=== PATIENT | male | born 1930 | race Caucasian/White ===

== ENCOUNTER → 2017-11-27 | Outpatient (CLI) | payer OTHER ==
[~2017-11-27] MED LIST: BISA5EC PO; CYAN500; Cipro500 MG PO; Colace100 MG PO; DONE10 PO; DONE5 PO; Flagyl500 MG PO; GABA800 PO; Golytely Solu4000 ML PO; KETO.5OPSO BOTHEYES; MAGCIT300 PO; MIRT15 PO; Norco 5-325 Ta1 EACH PO; Percocet 5-3251 EACH PO; Prednisone20 MG PO; TOCO1000 PO; Valium5 MG PO; Zofran Odt4 MG PO; Zofran Odt4 MG SL
[2017-11-27 15:59] LABS: BASOPHILS ABSOLUTE AUTO 0.05 K/mm3 (0.00-0.23); BASOPHILS PERCENT AUTO 1 % (0-2); EOSINOPHILS ABSOLUTE AUTO 0.06 K/mm3 (0.00-0.68); EOSINOPHILS PERCENT AUTO 1 % (0-6); Hematocrit 44.4 % (37.0-53.0); Hemoglobin 15.3 g/dL (13.5-17.5); IMMATURE GRAN ABSOLUTE AUTO 0.03 K/mm3 (0.00-0.10); IMMATURE GRAN PERCENT AUTO 0 % (0-1); LYMPHOCYTES PERCENT AUTO 14 % (21-46); MONOCYTES ABSOLUTE AUTO 0.73 K/mm3 (0.16-1.47); MONOCYTES PERCENT AUTO 8 % (4-13); Mean Corpuscular HGB 32.1 pg (26.0-34.0); Mean Corpuscular HGB Conc 34.5 g/dL (31.5-36.5); Mean Corpuscular Volume 93 fL (80-100); Mean Platelet Volume 9.4 fL (9.1-12.4); NEUTROPHILS ABSOLUTE AUTO 6.93 K/mm3 (1.96-9.15); NEUTROPHILS PERCENT AUTO 76 % (41-73); Platelet Count 189 K/mm3 (150-400); RDW Coefficient Variation 13.2 % (11.7-14.2); RDW Standard Deviation 44.8 fL (35.1-46.3); Red Blood Cell Count 4.77 M/mm3 (4.30-5.90)
[2017-11-27 16:07] LABS: Alanine Aminotransfer (ALT/SGP 30 U/L (12-78); Albumin, Blood 3.9 g/dL (3.4-5.0); Albumin/Globulin Ratio 1.2 (0.8-1.8); Alk Phos 106 U/L (40-126); Anion Gap 10 mmol/L (6-16); Aspartate Aminotrans (AST/SGOT 21 U/L (12-37); Bilirubin, Total 0.4 mg/dL (0.1-1.0); Blood Urea Nitrogen 20 mg/dL (8-24); CO2, Blood 28 mmol/L (21-32); Calcium, Blood 8.8 mg/dL (8.5-10.1); Chloride, Blood 102 mmol/L (98-108); Globulin, Blood 3.3 g/dL (2.2-4.0); Glomerular Filtration Rate >60 (60-); Glucose, Blood 118 mg/dL (70-99); Potassium, Blood 4.4 mmol/L (3.5-5.5); Sodium, Blood 140 mmol/L (136-145); Total Protein, Blood 7.2 g/dL (6.4-8.2)
== END ==
LOC: LAB SHORT 15:52
PROVIDERS: Physician Assistant
DX: R10.9 Unspecified abdominal pain (principal)
CPT/HCPCS: 80053; 85025

== ENCOUNTER → 2017-12-01 | Outpatient (CLI) | payer OTHER | LOC: LAB SHORT 12:58 | DX: R34 Anuria and oliguria (principal) | CPT/HCPCS: 87086 ==

== ENCOUNTER → 2017-12-13 | Outpatient (CLI) | payer OTHER ==
[2017-12-13 14:40] LABS: Anion Gap 4 mmol/L (6-16); Blood Urea Nitrogen 12 mg/dL (8-24); Bun/Creatinine Ratio 12.8 (12.0-20.0); CO2, Blood 29 mmol/L (21-32); Calcium, Blood 8.9 mg/dL (8.5-10.1); Chloride, Blood 104 mmol/L (98-108); Creatinine, Blood 0.94 mg/dL (0.60-1.20); Glomerular Filtration Rate >60 (60-); Glucose, Blood 98 mg/dL (70-99); Potassium, Blood 4.1 mmol/L (3.5-5.5); Sodium, Blood 137 mmol/L (136-145)
== END ==
LOC: LAB SHORT 13:58
PROVIDERS: General Practice
DX: G60.9 Hereditary and idiopathic neuropathy, unspecified (principal); R53.81 Other malaise
CPT/HCPCS: 80048; 82607; 84443; 86592

== ENCOUNTER 2017-12-25 15:48 | Emergency (ER) | payer OTHER ==
[~2017-12-25] VITALS: Ht 170.2 cm; Wt 81.7 kg
[~2017-12-25 15:48] MED LIST changes: -Cipro500 MG PO; -Colace100 MG PO; -Flagyl500 MG PO; -GABA800 PO; -Golytely Solu4000 ML PO; -Norco 5-325 Ta1 EACH PO; -Zofran Odt4 MG PO
[2017-12-25 17:09] LABS: BASOPHILS ABSOLUTE AUTO 0.04 K/mm3 (0.00-0.23); BASOPHILS PERCENT AUTO 1 % (0-2); EOSINOPHILS ABSOLUTE AUTO 0.08 K/mm3 (0.00-0.68); EOSINOPHILS PERCENT AUTO 1 % (0-6); Hematocrit 43.1 % (37.0-53.0); Hemoglobin 14.1 g/dL (13.5-17.5); IMMATURE GRAN ABSOLUTE AUTO 0.01 K/mm3 (0.00-0.10); IMMATURE GRAN PERCENT AUTO 0 % (0-1); LYMPHOCYTES ABSOLUTE AUTO 0.88 K/mm3 (0.84-5.20); LYMPHOCYTES PERCENT AUTO 15 % (21-46); MONOCYTES ABSOLUTE AUTO 0.45 K/mm3 (0.16-1.47); MONOCYTES PERCENT AUTO 8 % (4-13); Mean Corpuscular HGB 30.9 pg (26.0-34.0); Mean Corpuscular HGB Conc 32.7 g/dL (31.5-36.5); Mean Corpuscular Volume 94 fL (80-100); Mean Platelet Volume 9.4 fL (9.1-12.4); NEUTROPHILS ABSOLUTE AUTO 4.51 K/mm3 (1.96-9.15); NEUTROPHILS PERCENT AUTO 76 % (41-73); Platelet Count 179 K/mm3 (150-400); RDW Coefficient Variation 13.1 % (11.7-14.2); RDW Standard Deviation 45.2 fL (35.1-46.3); Red Blood Cell Count 4.57 M/mm3 (4.30-5.90); White Blood Cell Count 5.97 K/mm3 (4.00-11.30)
[2017-12-25 17:13] LABS: Alanine Aminotransfer (ALT/SGP 26 U/L (12-78); Albumin, Blood 3.8 g/dL (3.4-5.0); Albumin/Globulin Ratio 1.2 (0.8-1.8); Alk Phos 83 U/L (50-136); Anion Gap 9 mmol/L (6-16); Aspartate Aminotrans (AST/SGOT 27 U/L (12-37); Bilirubin, Total 0.3 mg/dL (0.1-1.0); Blood Urea Nitrogen 21 mg/dL (8-24); Bun/Creatinine Ratio 25.7 (12.0-20.0); CO2, Blood 25 mmol/L (21-32); Calcium, Blood 8.7 mg/dL (8.5-10.1); Chloride, Blood 105 mmol/L (98-108); Creatinine, Blood 0.82 mg/dL (0.60-1.20); Globulin, Blood 3.2 g/dL (2.2-4.0); Glomerular Filtration Rate >60 (60-); Glucose, Blood 128 mg/dL (70-99); Potassium, Blood 4.2 mmol/L (3.5-5.5); Sodium, Blood 139 mmol/L (136-145)
[2017-12-25] MEDS ORDERED: Golytely Solu4000 ML PO (18:13)
[2017-12-25] MEDS ORDERED: GABA800 PO (18:15)
[2018-08-28] MEDS ORDERED: Colace100 MG PO (00:28)
[2018-08-28] MEDS ORDERED: Cipro500 MG PO (00:28)
[2018-08-28] MEDS ORDERED: Zofran Odt4 MG PO (00:28)
[2018-08-28] MEDS ORDERED: Norco 5-325 Ta1 EACH PO (00:28)
[2018-08-28] MEDS ORDERED: Flagyl500 MG PO (00:28)
== END 2017-12-25 18:38 | disposition home or self-care (01) ==
LOC: ER 15:48
PROVIDERS: Physician Assistant
DX: K59.00 Constipation, unspecified (principal); Z88.5 Allergy status to narcotic agent; Z79.899 Other long term (current) drug therapy; Z88.6 Allergy status to analgesic agent
CPT/HCPCS: 36415; 51798; 74019; 80053; 81000; 85025; 93005; 93010; 99283

== ENCOUNTER → 2018-04-06 | Outpatient (CLI) | payer OTHER ==
[~2018-04-06] MED LIST changes: +GABA800 PO; +Golytely Solu4000 ML PO
[2018-04-08 14:29] LABS: Stool Occult Bld Immuno 1 Negative (NEGATIVE)
== END | disposition home or self-care (01) ==
LOC: LAB EV 15:51
PROVIDERS: Internal Medicine
DX: K62.5 Hemorrhage of anus and rectum (principal)
CPT/HCPCS: 82274

== ENCOUNTER → 2019-06-22 | Outpatient (CLI) | payer OTHER ==
[~2019-06-22] MED LIST changes: +Cipro500 MG PO; +Colace100 MG PO; +Flagyl500 MG PO; +Norco 5-325 Ta1 EACH PO; +Zofran Odt4 MG PO
== END | disposition home or self-care (01) ==
LOC: PLD 11:41 → LAB SHORT 11:41
DX: D48.5 Neoplasm of uncertain behavior of skin (principal)
CPT/HCPCS: 88305

== ENCOUNTER → 2019-08-09 | Outpatient (CLI) | payer OTHER | END | disposition home or self-care (01) | LOC: LAB SHORT 09:22 → PLD 09:22 | DX: C44.219 Basal cell carcinoma of skin of left ear and external auricular canal (principal) | CPT/HCPCS: 88305 ==

== ENCOUNTER → 2021-03-27 | Outpatient (CLI) | payer OTHER ==
[~2021-03-27] MED LIST changes: +Colace250 MG PO; +LACT10SY PO; +LATA.005SO BOTHEYES; +MEMA10 PO; +MIRT30ST PO; +POWDERLAX238 GM PO; +RAZADYNE12 MG PO; +SERT25 PO
== END | disposition home or self-care (01) ==
LOC: LAB SHORT 12:06 → LAB 12:06
DX: C44.229 Squamous cell carcinoma of skin of left ear and external auricular canal (principal)
CPT/HCPCS: 88305

== ENCOUNTER → 2021-04-10 | Outpatient (CLI) | payer OTHER | LOC: LAB SHORT 10:24 → LAB 10:24 | DX: C44.229 Squamous cell carcinoma of skin of left ear and external auricular canal (principal) | CPT/HCPCS: 88305 ==

== ENCOUNTER 2021-04-25 00:25 | Emergency (ER) | payer OTHER ==
[~2021-04-25] VITALS: Ht 175.3 cm; Wt 74.8 kg
[~2021-04-25 00:25] MED LIST changes: -Colace250 MG PO; -LACT10SY PO; -LATA.005SO BOTHEYES; -MEMA10 PO; -MIRT30ST PO; -POWDERLAX238 GM PO; -RAZADYNE12 MG PO; -SERT25 PO
[2021-04-25] MEDS ORDERED: LATA.005SO BOTHEYES (00:51)
[2021-04-25] MEDS ORDERED: RAZADYNE12 MG PO (00:51)
[2021-04-25] MEDS ORDERED: LACT10SY PO (00:51)
[2021-04-25] MEDS ORDERED: SERT25 PO (00:52)
[2021-04-25] MEDS ORDERED: MEMA10 PO (00:52)
[2021-04-25] MEDS ORDERED: MIRT30ST PO (00:52)
[2021-04-25 01:48] LABS: Alanine Aminotransfer (ALT/SGP 23 U/L (12-78); Albumin, Blood 3.9 g/dL (3.4-5.0); Albumin/Globulin Ratio 1.1 (0.8-1.8); Alk Phos 103 U/L (50-136); Anion Gap 4 mmol/L (6-16); Aspartate Aminotrans (AST/SGOT 33 U/L (12-37); Bilirubin, Total 0.5 mg/dL (0.1-1.0); Blood Urea Nitrogen 23 mg/dL (8-24); Bun/Creatinine Ratio 21.9 (12.0-20.0); CO2, Blood 26 mmol/L (21-32); Calcium, Blood 8.6 mg/dL (8.5-10.1); Chloride, Blood 108 mmol/L (98-108); Creatinine, Blood 1.05 mg/dL (0.60-1.20); Globulin, Blood 3.4 g/dL (2.2-4.0); Glomerular Filtration Rate >60 (60-); Glucose, Blood 109 mg/dL (70-99); Potassium, Blood 5.5 mmol/L (3.5-5.5); Sodium, Blood 138 mmol/L (136-145); Total Protein, Blood 7.3 g/dL (6.4-8.2); Troponin I <0.015 ng/mL (0.000-0.040)
[2021-04-25 02:08] LABS: BASOPHILS ABSOLUTE AUTO 0.02 K/mm3 (0.00-0.23); BASOPHILS PERCENT AUTO 0 % (0-2); EOSINOPHILS ABSOLUTE AUTO 0.01 K/mm3 (0.00-0.68); EOSINOPHILS PERCENT AUTO 0 % (0-6); Hematocrit 42.5 % (37.0-53.0); Hemoglobin 14.3 g/dL (13.5-17.5); IMMATURE GRAN ABSOLUTE AUTO 0.03 K/mm3 (0.00-0.10); IMMATURE GRAN PERCENT AUTO 0 % (0-1); LYMPHOCYTES ABSOLUTE AUTO 0.91 K/mm3 (0.84-5.20); LYMPHOCYTES PERCENT AUTO 11 % (21-46); MONOCYTES ABSOLUTE AUTO 0.58 K/mm3 (0.16-1.47); MONOCYTES PERCENT AUTO 7 % (4-13); Mean Corpuscular HGB 32.6 pg (26.0-34.0); Mean Corpuscular HGB Conc 33.6 g/dL (31.5-36.5); Mean Corpuscular Volume 97 fL (80-100); Mean Platelet Volume 9.5 fL (9.1-12.4); NEUTROPHILS ABSOLUTE AUTO 6.88 K/mm3 (1.96-9.15); NEUTROPHILS PERCENT AUTO 82 % (41-73); Platelet Count 174 K/mm3 (150-400); RDW Standard Deviation 46.6 fL (35.1-46.3); Red Blood Cell Count 4.39 M/mm3 (4.30-5.90); White Blood Cell Count 8.43 K/mm3 (4.00-11.30)
[2021-04-25] MEDS ORDERED: POWDERLAX238 GM PO (04:07)
[2021-04-25] MEDS ORDERED: Colace250 MG PO (04:07)
== END 2021-04-25 04:27 | disposition home or self-care (01) ==
LOC: ER 00:25
PROVIDERS: Emergency Medicine
DX: K59.00 Constipation, unspecified (principal); Z88.5 Allergy status to narcotic agent; Z79.899 Other long term (current) drug therapy
CPT/HCPCS: 36415; 71045; 74177; 80053; 83690; 83735; 84484; 85025; 93005; 93010; 96374; 96375; 99284-25; A9270; J2270; J2405; Q9967

== ENCOUNTER 2021-06-05 19:36 | Emergency (ER) | payer OTHER ==
[~2021-06-05] VITALS: Ht 170.2 cm; Wt 77.1 kg
[~2021-06-05 19:36] MED LIST changes: +Colace250 MG PO; +LACT10SY PO; +LATA.005SO BOTHEYES; +MEMA10 PO; +MIRT30ST PO; +POWDERLAX238 GM PO; +RAZADYNE12 MG PO; +SERT25 PO
== END 2021-06-05 20:26 | disposition left against medical advice (07) ==
LOC: ER 19:36
DX: K59.00 Constipation, unspecified (principal); Z53.21 Procedure and treatment not carried out due to patient leaving prior to being seen by health care provider
CPT/HCPCS: 74022; 99283-25

== ENCOUNTER 2021-12-09 16:05 | Inpatient (IN) | payer OTHER ==
[~2021-12-09] VITALS: Ht 172.7 cm; Wt 75.8 kg
[2021-12-09 16:45] LABS: BASOPHILS ABSOLUTE AUTO 0.02 K/mm3 (0.00-0.23); BASOPHILS PERCENT AUTO 0 % (0-2); EOSINOPHILS PERCENT AUTO 0 % (0-6); Hematocrit 44.4 % (37.0-53.0); Hemoglobin 14.9 g/dL (13.5-17.5); IMMATURE GRAN ABSOLUTE AUTO 0.02 K/mm3 (0.00-0.10); IMMATURE GRAN PERCENT AUTO 0 % (0-1); LYMPHOCYTES ABSOLUTE AUTO 0.59 K/mm3 (0.84-5.20); LYMPHOCYTES PERCENT AUTO 9 % (21-46); MONOCYTES ABSOLUTE AUTO 0.79 K/mm3 (0.16-1.47); MONOCYTES PERCENT AUTO 11 % (4-13); Mean Corpuscular HGB 32.1 pg (26.0-34.0); Mean Corpuscular HGB Conc 33.6 g/dL (31.5-36.5); Mean Corpuscular Volume 96 fL (80-100); NEUTROPHILS ABSOLUTE AUTO 5.49 K/mm3 (1.96-9.15); NEUTROPHILS PERCENT AUTO 80 % (41-73); RDW Coefficient Variation 13.6 % (11.7-14.2); RDW Standard Deviation 48.4 fL (35.1-46.3); Red Blood Cell Count 4.64 M/mm3 (4.30-5.90); White Blood Cell Count 6.91 K/mm3 (4.00-11.30)
[2021-12-09 16:46] LABS: Mean Platelet Volume 9.6 fL (9.1-12.4)
[2021-12-09 16:54] LABS: Alanine Aminotransfer (ALT/SGP 33 U/L (12-78); Albumin, Blood 3.9 g/dL (3.4-5.0); Albumin/Globulin Ratio 1.1 (0.8-1.8); Alk Phos 111 U/L (50-136); Anion Gap 9 mmol/L (6-16); Aspartate Aminotrans (AST/SGOT 97 U/L (12-37); Bilirubin, Total 0.5 mg/dL (0.1-1.0); Blood Urea Nitrogen 23 mg/dL (8-24); Bun/Creatinine Ratio 20.2 (12.0-20.0); CO2, Blood 26 mmol/L (21-32); Calcium, Blood 8.5 mg/dL (8.5-10.1); Chloride, Blood 104 mmol/L (98-108); Creatinine, Blood 1.14 mg/dL (0.60-1.20); Globulin, Blood 3.4 g/dL (2.2-4.0); Glomerular Filtration Rate >60 (60-); Glucose, Blood 118 mg/dL (70-99); Potassium, Blood 4.1 mmol/L (3.5-5.5); Sodium, Blood 139 mmol/L (136-145); Total Protein, Blood 7.3 g/dL (6.4-8.2)
[2021-12-09 17:03] LABS: Platelet Count 114 K/mm3 (150-400)
[2021-12-09 17:56] LABS: Troponin I 0.016 ng/mL (0.000-0.040)
[2021-12-09 18:50] LABS: Source, Urine Clean Catch
[2021-12-09 18:53] LABS: Bilirubin, Urine Neg (Neg); Blood, Urine 5+ (Neg); Glucose Qualitative, Urine Neg (Neg); Ketones, Urine Neg (Neg); Leukocyte Esterase, Urine Neg (Neg); Nitrite, Urine Neg (Neg); Protein, Urine 2+ (Neg); Specific Gravity, Urine 1.015 (1.003-1.022); Urobilinogen, Urine NORM (Normal)
[2021-12-09 19:01] LABS: Appearance, Urine Hazy (Clear); Color, Urine Pale Yellow (P-Yellow)
[2021-12-09 19:02] LABS: Bacteria Few /hpf; Squamous Epithelial Cells Few /hpf (Few); White Blood Cells, Urine 0-2 /hpf (0-5)
[2021-12-09 19:03] LABS: Granular Casts 0-2 /lpf (0); Hyaline Casts 0-2 /lpf (0-2); Mucus Heavy (0-Heavy)
[2021-12-09 21:52] LABS: Influenza A, PCR NEGATIVE (NEGATIVE); Influenza B, PCR NEGATIVE (NEGATIVE); Resp Syncytial Virus, PCR NEGATIVE (NEGATIVE)
[2021-12-09 22:56] LABS: SARS-Cov-2 (COVID-19) PCR, MMC POSITIVE (NEGATIVE)
[2021-12-10] MEDS ORDERED: GABA300 PO (00:37)
--- NOTE | 2021-12-10 06:19 | NUR ---
PATIENT CAME TO FLOOR AT 0105 FROM AN URGENT CARE. HAD A FALL YESTERDAY AND SON WAS NOT SURE HOW LONG HE WAS DOWN. C/O ABD PAIN, WEAKNESS, UNSTEADY GATE AND FEVER. PATIENT TESTED POSITIVE FOR COVID ON ADMISSION. CT ABD SHOWS POSSIBLE ACUTE CHOLECYSTITIS AND ULTRASOUND ABS SHOWS A STONE FILLED GALLBLADDER. DR. DIEZ FROM SURGERY WILL BE IN TO SPEAK WITH HIM TODAY TO PLAN NEXT STEP. PATIENT BECAME MORE CONFUSED SHIFT PROGRESSED. 1ST IV "CAME OUT IN HIS SLEEP", DID THE 2ND ONE WE PUT IN. HE WAS PULLING AT IT ALL NIGHT, EVEN WITH KRILLEX ON. GETS UP ON HIS OWN AND TRIED TO WALK CONNECTED TO IV LINE AND SCD. SPOKE WITH CHARGE NURSE AND WE WILL PURSUE ORDER FOR WRITST RESTRAINTS.
[2021-12-10 08:20] LABS: BASOPHILS ABSOLUTE AUTO 0.01 K/mm3 (0.00-0.23); BASOPHILS PERCENT AUTO 0 % (0-2); EOSINOPHILS PERCENT AUTO 0 % (0-6); Hematocrit 41.1 % (37.0-53.0); Hemoglobin 13.5 g/dL (13.5-17.5); IMMATURE GRAN ABSOLUTE AUTO 0.01 K/mm3 (0.00-0.10); IMMATURE GRAN PERCENT AUTO 0 % (0-1); LYMPHOCYTES ABSOLUTE AUTO 0.84 K/mm3 (0.84-5.20); LYMPHOCYTES PERCENT AUTO 20 % (21-46); MONOCYTES ABSOLUTE AUTO 0.77 K/mm3 (0.16-1.47); MONOCYTES PERCENT AUTO 18 % (4-13); Mean Corpuscular HGB Conc 32.8 g/dL (31.5-36.5); Mean Corpuscular Volume 97 fL (80-100); Mean Platelet Volume 9.8 fL (9.1-12.4); NEUTROPHILS ABSOLUTE AUTO 2.61 K/mm3 (1.96-9.15); NEUTROPHILS PERCENT AUTO 62 % (41-73); Platelet Count 114 K/mm3 (150-400); RDW Coefficient Variation 13.7 % (11.7-14.2); RDW Standard Deviation 49.3 fL (35.1-46.3); Red Blood Cell Count 4.22 M/mm3 (4.30-5.90); White Blood Cell Count 4.24 K/mm3 (4.00-11.30)
[2021-12-10 08:46] LABS: Albumin, Blood 3.2 g/dL (3.4-5.0); Bilirubin, Total 0.6 mg/dL (0.1-1.0); Bun/Creatinine Ratio 19.8 (12.0-20.0); Creatinine, Blood 1.16 mg/dL (0.60-1.20); Globulin, Blood 3.2 g/dL (2.2-4.0); Potassium, Blood 3.9 mmol/L (3.5-5.5); Total Protein, Blood 6.4 g/dL (6.4-8.2)
--- NOTE | 2021-12-10 10:53 | NUR ---
IMAGING PT TO IMAGING FOR HIDA SCAN
--- NOTE | 2021-12-10 16:06 | NUR ---
RECEIVED PATIENT TO ROOM 344 VIA BED DUE TO BEING IN RESTRAINS AND NEEDING CAMERA SUPERVISION. AWAKE AND ALERT. ORIENTED ONLY TO SELF. MILDLY AGITATED. WRIST RESTRAINS INTACT. PATIENT IS NPO DUE TO THE POSSIBILITY OF SURGERY. DISCUSSED THIS WITH LICENSED MASSAGE THERAPIST. ORIENTED TO NEW SURROUNDINGS. LUNGS CLEAR BUT DIMINISHED WITH A NONPRODUCTIVE COUGH. RA WITH EVEN AND UNLABORED RESPIRATIONS. REPOSITIONED TO 60-70 DEGREES IN BED. TELEMETRY INTACT. SCD NOT IN USE BUT ON THE BED CURRENTLY. IV SITE INFUSING WITHOUT DIFFICULTY. NO EDEMA REDNESS NOTED TO SITE. WILL MONITOR.
--- NOTE | 2021-12-10 16:30 | NUR ---
PATIENT ATTEMPTED TO GET OUT OF THE BED. ASSISTED BACK TO BED AND BOOSTED UPWARD FOR COMFORT. PATIENT PLACED ON BEDPAN STATING HE NEEDED TO HAVE A BM. HE REPEATEDLY SAID HE "HAD TO GO UPSTAIRS TO THE TOILET SO I CAN FLUSH IT". EXPLAINED REASONS WHY THIS WAS NOT POSSIBLE RIGHT NOW. HE WAS CALMER AND WE STEPPED OUT TO GIVE HIM A FEW MINUTES ON THE BEDPAN. WILL MONITOR. WRIST RESTRAINTS LOOSENED TO CHECK CIRCULATION AND REPLACED.
--- NOTE | 2021-12-10 16:51 | NUR ---
SPOKE WITH PATIENT'S SON VIA PHONE UPDATING ON HIS STATUS.
--- NOTE | 2021-12-10 17:42 | NUR ---
@ APPROXIMATELY [phone], PATIENT WAS NEEDING TO VOID AND COULDN'T. WASN'T SUCCESSFUL ON BEDPAN FOR BM. BLADDER SCANNED WITH APPROX 200 CC NOTED. PATIENT ASSISTED X 2 TO AMBULATE TO THE TOILET TO VOID. VOIDED ON THE FLOOR AND APPROX 100 CC IN THE URINAL AND HAD A SMALL BM. ASSISTED BACK TO BED. PATIENT STILL TOUCHING AT LINES SO WRIST RESTRAINTS REAPPLIED. CHANTELLE SHAH CALLING TO SPEAK WITH MD ABOUT NAMRATA VEST IN ADDITION.
--- NOTE | 2021-12-10 17:47 | NUR ---
RECEIVED PATIENT IN BILATERAL WRIST RESTRAINTS, NAMRATA VEST ADDED. JUST RECEIVED CALL FROM SURGEON THAT PATIENT WILL HAVE A CHOLECYSTECTOMY TOMORROW. STATES HE CAN HAVE CLEAR LIQUIDS NOW AND NPO AFTER MIDNIGHT. ORIENTED TO PERSON ONLY. REORIENTED TO ENVIRONMENT AND SITUATION. WILL MONITOR.
--- NOTE | 2021-12-10 21:30 | NUR ---
confused elderly PT covid 19 positive with room air sats greater than 92%. On cl liq diet NPO at NC for gallbladder removal. Vest & bilat wrist restraints to prevent falls & removal of medical equipment. Removed wrist restraints repeatedly & removed his 5th IV? He is confused trying to get OOB repeatedly & has unsteady gait, up with 2 to BSC did not void or have BM. As soon as we put back to bed CO needing to have BM or void. Bedpan offered no bm incont in attends bed/ removed tele monitor tore wires apart. NSR rate &(. Will request antianxiety rx, bladder scan 241, ask DC tele due to it adggitates PT. Will restart IV for ABX when PT calms down.
--- NOTE | 2021-12-11 06:45 | NUR ---
89 year old Male [employer] to [place] [facility] for gallbladder removal. PT has dementia unable to sign consents. He has bilat soft wrist restraints & hussein vest to prevent falls & further injury. PT pleasantly confused, calls out for Son Raymond while awake. Vistaril 25 mg helpful for anxiety ultram 50 mg po helpful but did not fully relieve rt abd pain but fentanyl 25 mg did provide enough relief to be able to rest.
--- NOTE | 2021-12-11 09:02 | NUR ---
REPORT GIVEN TO TRI ARNOLD RN. PATIENT TRANSFERRING TO SURGERY VIA BED.
--- NOTE | 2021-12-11 09:49 | NUR ---
PATIENT TRANSFERRING TO SURGERY VIA BED. NAMRATA VEST AND BILATERAL WRIST RESTRAINTS INTACT. SURGEON AND ANESTHESIA CONSENTED HERE WITH PATIENT AND FAMILY MEMBER VIA PHONE. PREPPED PER TRI SHAH IN SURGERY.
--- NOTE | 2021-12-11 10:40 | NUR ---
12/11/21 1040 Albert Castrejon PT TO OR FROM FLOOR. ON SCHEDULED UNASYN LAST DOSE AT 0500 1.25. BORGES CATHETER PLACED IN OR, INFLATED BALLOON WITH 10CC FLUID.
--- NOTE | 2021-12-11 11:19 | NUR ---
MORNING MEDS HELD EARLIER DUE TO PATIENT BEING NPO FOR SURGERY.
--- NOTE | 2021-12-11 11:31 | NUR ---
UPON ASSESSMENT AT 0819, IV PATENT AND INFUSING NS TO R FOREARM IV SITE. NO EDEMA, REDNESS OR C/O PAIN TO IV SITE NOTED.
--- NOTE | 2021-12-11 13:23 | NUR ---
RECEIVED BACK TO ROOM 344 FROM PACU VIA BED. O2 AT 2 LPM NASAL CANNULA. 4 ABDOMINAL LAP SITES WITH GAUZE AND TEGADERM INTACT. IV PATENT AND INFUSING LR @ KVO. ALERT. DENIES PAIN AND NAUSEA.
--- NOTE | 2021-12-11 13:34 | NUR ---
REMOTE MONITORING NOTIFIED PATIENT IS BACK FROM SURGERY. DISCUSSED WITH CHARGE NURSE JASON SIMMONS RN ABOUT LEAVING RESTRAINTS OFF PATIENT IS CURRENTLY CALM AND COOPERATIVE S/P ANESTHESIA. WILL MONITOR.
--- NOTE | 2021-12-11 16:50 | NUR ---
PATIENT IS S/P LAP SEEMA TODAY. REMAINS IN BILATERAL WRIST RESTRAINTS. HE WAS IN NAMRATA AND JIM WRIST RESTRAINTS BEFORE SURGERY. WHEN HE ARRIVED BACK POST OP HE WAS SEDATED FROM ANESTHESIA AND THE RESTRAINTS WERE LEFT OFF FOR A PERIOD OF TIME AND CAMERA MONITORING WAS IN PLACE. AT APPROX 1410, PATIENT BECAME AGITATED AND STARTED PICKING AT THING ON HIS BODY AND BILATERAL WRIST RESTRAINTS WERE REAPPLIED AT 1415. VSS. ORIENTED TO PERSON AND THE SITUATION OF HAVING HAD SURGERY ONLY. DENIES PAIN. 4 LAP SITES TO ABDOMEN WITH GAUZE AND TEGADERN CLEAN DRY INTACT. SCD INTACT. O2 AT 2 LPM NASAL CANNULA. ATTENDS BRIEF INTACT. IV PATENT AND INFUSING. WILL MONITOR. SEE RESTRAINT FLOWSHEET. WILL MONITOR.
--- NOTE | 2021-12-11 21:46 | NUR ---
PT appears comfortable after lap enzo. Passed flatus.
--- NOTE | 2021-12-12 04:33 | NUR ---
89 year old Male to Deirdre since age 20 is [place]. PT had lap enzo with grams & has tolerated postop wel. Incont of urine x 2 & used urinal with assist x 1. NS at 50 ml hr, PT has take clear liquids with assist & denies nausea. PT had been requiring bilat soft wrist restraints & hussein vest but after surgery he was not as aggitiated or confused. PT is still intermittantly impulsive but he has remote camera monitoring & bed alalrm on 3 siderails. He did undress 1 time & monitor called. PT redirects & is resting quietly. He has been weaned to room air& NSG provides IS & PT attempts IS with poor technique. Enc CDB. PT has covid 19 positive but has only occ loose nonprod cough.
--- NOTE | 2021-12-12 11:17 | NUR ---
SPOKE WITH SPOUSE VIA PHONE UPDATING ON PATIENT'S STATUS.
--- NOTE | 2021-12-12 11:55 | NUR ---
Initial Interview with [facility] [place] [facility] 1. Who did you speak with? Spoke with patient's son Raymond. 2. What is the patient's prior level of functions? Patient lives independently with Deirdre. Son recently moved in 3-4 months ago to assist with ADL's. Patient able to walk without assistance, but has a 4WW available if needed. Son Raymond provides transportation as needed. Residence is two story. Patient and his Deirdre will move to first floor in the residence to decrease stair use and fall risk. 3. Is the patient and/or family able to provide transportation to and from doctor's appointments and packing and final assembly supervisor prescriptions? Cesar provides assistance when needed. 5. Does patient still drive? No 6. POA/PCP/NOK: NOK: Raymond Hernandez/PCP [facility] MARISELA Paez 7. Discharge goals: Home/if Home Health services needed Raymond does not have a preference -Medication Management: Raymond assists with medications -Preferred Pharmacy: [facility] -Housekeeping need: Raymond and his Janelle assists with housekeeping and cooking 8. List barriers to discharge: None known at this time 9. Discharge Plan: TBD/Home 10. PCP Follow up appointment: Will be scheduled within seven calendar days of discharge 11. Other Notes: patient is a ; spoke with [place] on initiating service connection disability claim and I would assist her with the process. I left a message with local Service Office.
--- NOTE | 2021-12-12 16:19 | NUR ---
PATIENT VOICED NO C/O PAIN WHEN ASKED. TOLERATING DIET ADVANCEMENT. IV PATENT AND INFUSING WITHOUT DIFFICULTY. 4 LAP SITES OPEN TO AIR WITH STERI STRIPS INTACT. PT IN TO EVALUATE PATIENT. UPDATED ON STATUS EARLIER TODAY. WILL MONITOR.
--- NOTE | 2021-12-13 04:36 | NUR ---
PATIENT ALERT AND ORIENTED TO SELF ONLY. VITALS STABLE. CONTINUES ON IV ZOSYN Q6HRS WITHOUT S/SX ADVERSE REACTIONS. PATIENT ATTEMPTED TO GET OOB UNASSISTED TWICE THIS SHIFT, BUT BOTH TIMES TO USE THE BSC. PLEASANT AND COOPERATIVE WITH STAFF AND PROVIDED CARE. FOUR PUNCTURE SITES TO ABD COVERED WITH STERI-STRIPS WHICH ARE C/D/I; NOT INDICATION OF INFECTION AT SITES. PATIENT ASLEEP AT THIS TIME. CALL LIGHT WITHIN REACH.
--- NOTE | 2021-12-13 08:44 | NUR ---
[facility] ict sales representative Summer contacted for Home Health services.
--- NOTE | 2021-12-13 14:53 | NUR ---
PT DISCHARGED HOME WITH HOME HEALTH. ALL PAPERWORK REVIEWED AND EDUCATIONAL MATERIAL SENT WITH PT. PT'S FAMILY TO TRANSPORT HOME. ALL PERSONAL BELONGINGS COLLECTED AND TAKEN WITH PT. PT HAS BEEN AOX3 AND COOPERATIVE OF CARE. NO DISTRESS NOTED. PT HAS BEEN A ONE PERSON WITH WALKER TO TRANSPORT.
--- NOTE | 2021-12-13 16:09 | NUR ---
Per Dr. Ramires discharge appropriate on: 12/13/21. Patient does not oppose discharge. Patient discharged to residence with Home Health orders. Summer from [facility] notified of discharge. [id number] Janelle provided transportation to residence. DME: No PTOT recommendations. Patient (son Raymond [phone] or [id number] Janelle [phone]) will be contacted by [facility] to schedule hospital follow-up with PCP MARISELA Paez. Patient's family to contact PCP if any questions regarding medication management or if condition worsens, patient to go to urgent care. No barriers to discharge.
== END 2021-12-13 14:52 | disposition home or self-care (01) | DRG 853 ==
LOC: ER 16:05 → MEDS 22:21
PROVIDERS: Physician Assistant; Student in an Organized Health Care Education/Training Program; Surgery; ADMIT Internal Medicine
PROC: 8E0ZXY6 Isolation (ICD-10-PCS; 2021-12-09)
PROC: 0FT44ZZ Resection of Gallbladder, Percutaneous Endoscopic Approach (ICD-10-PCS; principal; 2021-12-11 09:30)
DX: A41.9 Sepsis, unspecified organism (principal); U07.1 COVID-19; K80.00 Calculus of gallbladder with acute cholecystitis without obstruction; F05 Delirium due to known physiological condition; K59.09 Other constipation; I73.9 Peripheral vascular disease, unspecified; G30.9 Alzheimer's disease, unspecified; F02.80 Dementia in other diseases classified elsewhere, unspecified severity, without behavioral disturbance, psychotic disturbance, mood disturbance, and anxiety; F41.9 Anxiety disorder, unspecified; F32.A Depression, unspecified; M43.00 Spondylolysis, site unspecified; Z88.5 Allergy status to narcotic agent; Z79.899 Other long term (current) drug therapy; Z98.890 Other specified postprocedural states
CPT/HCPCS: 0241U; 36415; 71045; 74177; 74300; 76705; 78226; 80053; 81001; 83605; 83880; 84484; 85025; 87040; 87086; 88304; 93922; 93970; 96374; 97110; 97162; 97166; 97530; 99285; A9270; A9537; C1729; J1100; J2370; J2405; J2543; J2704; J3010; J7030; J7120; Q0177; Q9967

== ENCOUNTER → 2021-12-18 | Outpatient (CLI) | payer OTHER ==
[~2021-12-18] MED LIST changes: +GABA300 PO
[2021-12-18 22:14] LABS: Alanine Aminotransfer (ALT/SGP 59 U/L (12-78); Albumin, Blood 2.9 g/dL (3.4-5.0); Alk Phos 71 U/L (50-136); Anion Gap 7 mmol/L (6-16); Aspartate Aminotrans (AST/SGOT 90 U/L (12-37); Bilirubin, Total 0.5 mg/dL (0.1-1.0); Blood Urea Nitrogen 18 mg/dL (8-24); Bun/Creatinine Ratio 20.8 (12.0-20.0); CO2, Blood 28 mmol/L (21-32); Calcium, Blood 7.8 mg/dL (8.5-10.1); Chloride, Blood 104 mmol/L (98-108); Creatinine, Blood 0.87 mg/dL (0.60-1.20); Glomerular Filtration Rate >60 (60-); Glucose, Blood 128 mg/dL (70-99); Potassium, Blood 3.2 mmol/L (3.5-5.5); Sodium, Blood 139 mmol/L (136-145); Total Protein, Blood 5.9 g/dL (6.4-8.2)
== END ==
LOC: LAB SHORT 14:50
PROVIDERS: Physician Assistant
DX: K81.9 Cholecystitis, unspecified (principal)
CPT/HCPCS: 80053

== ENCOUNTER → 2021-12-25 | Outpatient (CLI) | payer OTHER ==
[2021-12-25 15:59] LABS: Alanine Aminotransfer (ALT/SGP 83 U/L (12-78); Albumin, Blood 3.1 g/dL (3.4-5.0); Albumin/Globulin Ratio 0.8 (0.8-1.8); Alk Phos 97 U/L (50-136); Anion Gap 1 mmol/L (6-16); Aspartate Aminotrans (AST/SGOT 64 U/L (12-37); Bilirubin, Total 0.8 mg/dL (0.1-1.0); Blood Urea Nitrogen 19 mg/dL (8-24); Bun/Creatinine Ratio 20.6 (12.0-20.0); CO2, Blood 31 mmol/L (21-32); Calcium, Blood 8.7 mg/dL (8.5-10.1); Chloride, Blood 107 mmol/L (98-108); Creatinine, Blood 0.92 mg/dL (0.60-1.20); Glomerular Filtration Rate >60 (60-); Glucose, Blood 138 mg/dL (70-99); Potassium, Blood 3.8 mmol/L (3.5-5.5); Sodium, Blood 139 mmol/L (136-145); Total Protein, Blood 7.1 g/dL (6.4-8.2)
== END ==
LOC: LAB SHORT 15:15 → LAB 15:15
PROVIDERS: Physician Assistant
DX: G30.9 Alzheimer's disease, unspecified (principal); I73.9 Peripheral vascular disease, unspecified
CPT/HCPCS: 80053

== ENCOUNTER → 2022-06-03 | Outpatient (CLI) | payer OTHER | END | disposition home or self-care (01) | LOC: LAB 08:02 → LAB SHORT 08:02 | DX: C44.629 Squamous cell carcinoma of skin of left upper limb, including shoulder (principal) | CPT/HCPCS: 88305 ==